=== PATIENT | female | born 1975 | race Caucasian/White ===

== ENCOUNTER 2016-09-18 12:56 | Emergency (ER) | payer OTHER ==
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
[2016-09-18 14:47] VITALS: BP 130/70
== END 2016-09-18 14:46 | disposition home or self-care (01) ==
LOC: ED 12:56
DX: T22.112A Burn of first degree of left forearm, initial encounter (principal); T20.16XA Burn of first degree of forehead and cheek, initial encounter; X08.8XXA Exposure to other specified smoke, fire and flames, initial encounter; Y93.9 Activity, unspecified; Y99.9 Unspecified external cause status
CPT/HCPCS: 99283

== ENCOUNTER 2017-02-22 18:34 | Emergency (ER) | payer OTHER ==
--- NOTE | 2017-02-22 19:09 | ED Physician Documentation ---
Fall - HISTORIAN Historian: patient - HPI Stated Complaint: rib pain Chief Complaint: Fall Additional Information: pt fell from horse 2 d ago w/sig back pain then today had severe coughing spell w/exab thoracic back pain and prod cough plus chills today. pt has opmh of kicked abd by horse age 23 after which surgically lost GB [id number]%PANCREAS PART COLON FALLOPIAN TUBES RCONSTRUCTION UB AND STOMACH. Onset: days ago (2) Where: home Context: lost balance (FALL FROM HORSE) r: moderate Associated Symptoms:: no loss of consciousness Location of Pain/Injury: upper back - ROS CONST: weakness, chills MS/SKIN/LYMPH: back pain. 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 pt also had jaw wireing res horse incident) - SOCIAL HX Smoking History: non-smoker Alcohol Use: none Drug Use: none - FAMILY HX Family History: no significant history - VITAL SIGNS Vital Signs: Vital Signs Temp Pulse Resp BP Pulse Ox 37.0 F L 74 20 133/88 99 02/22/17 18:34 02/22/17 18:34 02/22/17 18:34 02/22/17 18:34 02/22/17 18:34 - REVIEWED ASSESSMENTS Nursing Assessment Reviewed: Yes Vitals Reviewed: Yes <Denzel Andrew - Last Filed: 02/22/17 19:15> - PAST HX Past History: other (lo thryoid. pt also had jaw wireing res horse incident; T -spine nerve stimulator. Multiple abdominal surgeries) - VITAL SIGNS Vital Signs: Vital Signs Temp Pulse Resp BP Pulse Ox 37.0 F L 74 20 133/88 99 02/22/17 18:34 02/22/17 18:34 02/22/17 18:34 02/22/17 18:34 02/22/17 18:34 <ROCIO JOHNSON - Last Filed: 02/23/17 01:09> - PAST HX Allergies/Adverse Reactions: Allergies Allergy/AdvReac Type Severity Reaction Status Date / Time No Known Allergies Allergy Verified 04/02/16 17:27 Home Medications: Ambulatory Orders Medication Instructions Recorded Thyroid,Pork [Nature-Throid] 65 mg PO DAILY 08/21/15 Glipizide/Metformin HCl [Metaglip] 1 each PO DAILY 09/18/16 Omeprazole [Prilosec] 10 mg PO DAILY 09/18/16 Ketorolac Tromethamine [Toradol] 10 mg PO TID #15 tablet 02/22/17 Progress - Results/Orders Results/Orders: charles newman 1914 <Denzel Andrew - Last Filed: 02/22/17 19:15> - Progress Progress: 1914 Assumed care of patient. Lab and xray pending. 2029 Reviewed lab and xray results with patient. Patient nurse at [facility]. 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 Edema noted in Right flank and right posterior back area ; right of T6- T7; tender to light palpation. [address] Landeros, addendum to report noted. [address] Hidalgo at [place]. WBC likely due to trauma. Recommended follow up with PCP. Will treat myalgia. Reviewed signs and symptoms to return to ER for. Reviewed discharge instructions with patient, verbalized understanding. <ROCIO JOHNSON C - Last Filed: 02/23/17 01:09> ED Results Lab/Radiology - Orders Orders: ED Orders Category Date Time Status CHEST P.A.&LAT 2 VIEWS [RAD] Stat Exams 02/22/17 Ordered T SPINE 3 VIEWS [RAD] Stat Exams 02/22/17 Ordered AMYLASE Routine Lab 02/22/17 Ordered CBC/PLATELET/DIFF Routine Lab 02/22/17 Ordered CMP Routine Lab 02/22/17 Ordered PT-INR Routine Lab 02/22/17 Ordered URINALYSIS Routine Lab 02/22/17 Ordered EKG WITH COMPARISON Stat Ther 02/22/17 Ordered <Denzel Andrew Last Filed: 02/22/17 19:15> - Lab Results Lab Results: Lab Results 02/22/17 02/22/17 02/22/17 19:30 19:30 19:30 WBC 16.40 K/ul H K/ul (4.00-12.00) RBC 4.61 M/ul M/ul (3.90-5.20) Hgb 13.7 g/dL g/dL (12.0-16.0) Hct 41.1 % % (34.5-46.5) MCV 89.0 fl fl (80.0-100.0) MCH 29.8 pg pg (28.0-34.0) MCHC 33.5 g/dL g/dL (30.0-36.0) RDW 13.7 % % (11.3-14.3) Plt Count 498 K/mm3 H K/mm3 (130-400) Neut % (Auto) 57.8 % % (39.0-79.0) Lymph % (Auto) 32.0 % % (16.0-50.0) [place] % (Auto) 6.4 % % (0.0-11.0) Eos % (Auto) 1.3 % % (0.0-6.8) Baso % (Auto) 0.8 (0.0-1.5) Neut # (Auto) 9.5 # k/uL H # k/uL (1.4-7.7) Lymph # (Auto) 5.2 # k/uL H # k/uL (0.6-4.0) [place] # (Auto) 1.0 # k/uL H # k/uL (0.0-0.9) Eos # (Auto) 0.2 # k/uL # k/uL (0.0-0.6) Baso # (Auto) 0.1 # k/uL # k/uL (0.0-0.5) Reactive Lymphs % 1.8 % % (0.0-5.0) Reactive Lymphs # 0.3 # k/uL # k/uL (0.0-0.8) PT 10.0 Seconds Seconds (9.4-11.6) INR 0.95 (0.9-1.2) Sodium 136 mmol/L L mmol/L (137-145) Potassium 3.1 mmol/L L mmol/L (3.5-5.1) Chloride 101 mmol/L mmol/L (98-107) Carbon Dioxide 28 mmol/L mmol/L (22-30) BUN 11 mg/dL mg/dL (7-17) Creatinine 0.70 mg/dL mg/dL (0.52-1.04) Estimated Creat Clear 144 Est GFR ( Amer) > 60 (60 - ) Est GFR (Non-Af Amer) > 60 (60 - ) Glucose 89 mg/dL mg/dL (74-106) Calcium 8.4 mg/dL mg/dL (8.4-10.2) Total Bilirubin 0.1 mg/dL L mg/dL (0.2-1.3) AST 13 U/L L U/L (15-46) ALT 17 U/L U/L (13-69) Alkaline Phosphatase 72 U/L U/L (38-126) Total Protein 6.9 g/dL g/dL (6.3-8.2) Albumin 3.5 g/dL g/dL (3.5-5.0) - Radiology Radiology Impressions: CT chest with IV contrast CT abdomen and pelvis with IV contrast Clinical history: History of trauma, right flank pain, cough, fell of the horse No visible lung contusion. No visible pneumothorax or mediastinal hematoma . No visible pleural effusion. No visible focal hepatic or splenic pathology. Normal kidneys, normal pancreas and adrenal glands. No retroperitoneal hematoma. No bowel obstruction. No pelvic hematoma or pelvic fractures. Septated left adnexal cyst is noted measures about the 4.5 cm in diameter. No visible to ossicular lumbar spine fractures. Normal sternum. Impression: Normal CT chest with IV contrast 4.5 cm septated cyst in the left adnexa Normal solid organs of abdomen and pelvis . No bowel obstruction, no free fluid or free air in the abdomen or pelvis No definite visible spine or pelvic fractures Electronically signed on Feb 22, 2017 9:54:07 PM CDT by: Bogdan Landeros Addendum : Post splenectomy and partial pancreatectomy is noted Addendum electronically signed by Bogdan Landeros on February 22, 2017 10:24:40 PM CDT Chest PA and lateral views Clinical history: Cough and history fall and injury of the back Normal heart shadow and mediastinum. Clear lungs without acute infiltrates or pleural effusion. Normal bony thorax. Impression: No active pulmonary pathology Electronically signed on Feb 22, 2017 8:15:24 PM CDT by: Bogdan Landeros Thoracic spine total of 3 views Clinical history: History of fall from a horse 2 days ago, complaining back pain There is intraspinal electrical stimulant in the mid thoracic spine. No fractures, dislocation or bone destruction. Very slight dextroscoliosis of the mid and lower thoracic spine. Impression: Negative for fracture Electronically signed on Feb 22, 2017 8:14:20 PM CDT by: Bogdan Landeros - Orders Orders: ED Orders Category Date Time Status Place IV Lock 1T Care 02/22/17 19:05 Active CHEST P.A.&LAT 2 VIEWS [RAD] Stat Exams 02/22/[address] ABD & PELVIS W/ CON Stat Exams 02/22/[address] CHEST W/ CONTRAST Stat Exams 02/22/17 Ordered T SPINE 3 VIEWS [RAD] Stat Exams 02/22/17 Completed CBC/PLATELET/DIFF Routine Lab 02/22/17 19:30 Completed CMP Routine Lab 02/22/17 19:30 Completed PT-INR Routine Lab 02/22/17 19:30 Completed URINALYSIS Routine Lab 02/22/17 Ordered EKG WITH COMPARISON Stat Ther 02/22/17 Ordered <ROCIO JOHNSON - Last Filed: 02/23/17 01:09> Fall Physical Exam - Physical Exam General Appearance: moderate distress Head: non-tender Neck: non-tender Eye: EOMI Resp/CVS: breath sounds nml (but sig diminished dt thoracic pain), heart sounds nml Abdomen: soft, non-tender Neuro: oriented x3, sensation nml, motor nml, mood/affect nml Back: CVA tenderness (R), CVA tenderness (L), muscle spasm - Maria Luz Coma Score Eyes Open: Spontaneous Speech: Oriented <Denzel Andrew - Last Filed: 02/22/17 19:15> Discharge <Denzel Andrew - Last Filed: 02/22/17 19:15> Decision to Admit: NO Decision Time: 23:08 <ROCIO JOHNSON - Last Filed: 02/23/17 01:09> Clincal Impression: Myalgia Leukocytosis Qualifiers: Leukocytosis type: unspecified Qualified Code(s): D72.829 - Elevated white blood cell count, unspecified Back pain Qualifiers: Back pain location: thoracic back pain Chronicity: acute Back pain laterality: right Qualified Code(s): M54.6 - Pain in thoracic spine Prescriptions: Ketorolac Tromethamine [Toradol] 10 mg PO TID #15 tablet Referrals: Primary Doctor,No [Primary Care Provider] - 2 Days Additional Instructions: You may use Tylenol every 4hour as needed for pain. Limit your dose to less than 4 G per day. Do not take ibuprofen, aleve, naproxen or any other NSAID while you are on toradol. If you develop fever, nausea/vomiting, or productive cough see your primary care provider. Condition: Stable Disposition: 01 HOME, SELF-CARE
[2017-02-22 19:38] LABS: BASOPHILS % 0.8 (0.0-1.5); EOSINOPHILS % 1.3 % (0.0-6.8); MEAN CORPUSCULAR HEMOGLOBIN 29.8 pg (28.0-34.0); MONOCYTES % 6.4 % (0.0-11.0); NEUTROPHILS # 9.5 # k/uL (1.4-7.7)
[2017-02-22 20:02] LABS: eGFR (African) > 60; eGFR (Non-African) > 60
--- NOTE | 2017-02-22 20:23 | Diagnostic Imaging Report ---
ROCIO JOHNSON (CHELSIE) - ER [facility] [address] [facility].[address] [address] Report Submission Date: Feb 22, 2017 8:14:20 PM CDT Patient Study Name: ABI MEDINA Date: Feb 22, 2017 7:41:31 PM CDT Modality Type: CR Gender: F Description: SPINE : 71 Institution: [facility] Physician: ROCIO JOHNSON) - ER Thoracic spine total of 3 views Clinical history: History of fall from a horse 2 days ago, complaining back pain There is intraspinal electrical stimulant in the mid thoracic spine. No fractures, dislocation or bone destruction. Very slight dextroscoliosis of the mid and lower thoracic spine. Impression: Negative for fracture Electronically signed on Feb 22, 2017 8:14:20 PM CDT by: Bogdan VARGAS
--- NOTE | 2017-02-22 20:24 | Diagnostic Imaging Report ---
ROCIO JOHNSON (CHELSIE) - ER [facility] [address] [facility].[address] [address] Report Submission Date: Feb 22, 2017 8:15:24 PM CDT Patient Study Name: ABI MEDINA Date: Feb 22, 2017 7:48:54 PM CDT Modality Type: CR Gender: F Description: CHEST : 71 Institution: [facility] Physician: ROCIO JOHNSON (CHELSIE) - ER Chest PA and lateral views Clinical history: Cough and history fall and injury of the back Normal heart shadow and mediastinum. Clear lungs without acute infiltrates or pleural effusion. Normal bony thorax. Impression: No active pulmonary pathology Electronically signed on Feb 22, 2017 8:15:24 PM CDT by: Bogdan VARGAS
[2017-02-22] MEDS: fentaNYL CITRATE/PF 100 MCG/ 2ML AMP IVP ONE (20:51)
--- NOTE | 2017-02-22 22:58 | Diagnostic Imaging Report ---
ROCIO JOHNSON (CHELSIE) - ER [facility] [address] [facility].[address] [address] Report Submission Date: Feb 22, 2017 9:54:07 PM CDT Patient Study Name: ABI MEDINA Date: Feb 22, 2017 8:59:32 PM CDT Modality Type: CT\SR Gender: F Description: CT CHEST W/ CONTRAST : 71 Institution: [facility] Physician: ROCIO JOHNSON) - ER CT chest with IV contrast CT abdomen and pelvis with IV contrast Clinical history: History of trauma, right flank pain, cough, fell of the horse No visible lung contusion. No visible pneumothorax or mediastinal hematoma . No visible pleural effusion. No visible focal hepatic or splenic pathology. Normal kidneys, normal pancreas and adrenal glands. No retroperitoneal hematoma. No bowel obstruction. No pelvic hematoma or pelvic fractures. Septated left adnexal cyst is noted measures about the 4.5 cm in diameter. No visible to ossicular lumbar spine fractures. Normal sternum. Impression: Normal CT chest with IV contrast 4.5 cm septated cyst in the left adnexa Normal solid organs of abdomen and pelvis . No bowel obstruction, no free fluid or free air in the abdomen or pelvis No definite visible spine or pelvic fractures Electronically signed on Feb 22, 2017 9:54:07 PM CDT by: Bogdan VARGAS
--- NOTE | 2017-02-22 22:58 | Diagnostic Imaging Report ---
ROCIO JOHNSON (CHELSIE) - ER [facility] [address] [facility].[address] [address] Report Submission Date: Feb 22, 2017 9:54:07 PM CDT Patient Study Name: ABI MEDINA Date: Feb 22, 2017 8:59:32 PM CDT Modality Type: CT\SR Gender: F Description: CT CHEST W/ CONTRAST : 71 Institution: [facility] Physician: ROCIO JOHNSON) - ER CT chest with IV contrast CT abdomen and pelvis with IV contrast Clinical history: History of trauma, right flank pain, cough, fell of the horse No visible lung contusion. No visible pneumothorax or mediastinal hematoma . No visible pleural effusion. No visible focal hepatic or splenic pathology. Normal kidneys, normal pancreas and adrenal glands. No retroperitoneal hematoma. No bowel obstruction. No pelvic hematoma or pelvic fractures. Septated left adnexal cyst is noted measures about the 4.5 cm in diameter. No visible to ossicular lumbar spine fractures. Normal sternum. Impression: Normal CT chest with IV contrast 4.5 cm septated cyst in the left adnexa Normal solid organs of abdomen and pelvis . No bowel obstruction, no free fluid or free air in the abdomen or pelvis No definite visible spine or pelvic fractures Electronically signed on Feb 22, 2017 9:54:07 PM CDT by: Bogdan VARGAS
[2017-02-22] MEDS: KETOROLAC TROMETHAMINE 30 MG/1ML VIAL IVP ONE (23:15)
[2017-02-22] MEDS: BUTORPHANOL TARTRATE 2 MG/ML VIAL IV ONE (23:15)
[2017-02-22 23:37] VITALS: BP 132/67
[2017-02-23 06:50] LABS: APPEARANCE,URINE CLEAR (CLEAR); COLOR,URINE YELLOW (YELLOW); OCCULT BLOOD,URINE TRACE-LYSED (NEGATIVE); UROBILINOGEN URINE 0.2 Eu (0.2-1.0)
== END 2017-02-22 23:30 | disposition home or self-care (01) ==
LOC: ED 18:34
DX: M79.1 Myalgia (principal); D72.829 Elevated white blood cell count, unspecified; M54.6 Pain in thoracic spine
CPT/HCPCS: 71020; 71260; 72072; 74177; 80053; 81002; 83605; 85025; 85610; J0595; J1885; J3010; 96374; 96375; 99283; S1016

== ENCOUNTER 2018-01-03 19:52 | Emergency (ER) | payer OTHER ==
--- NOTE | 2018-01-03 19:59 | ED Physician Documentation ---
Headache - HISTORIAN Historian: patient - HPI Stated Complaint: headache Chief Complaint: Headache Onset: other (on and off increasingly over last three weeks ) Timing: unsure New Gradual Onset: No Exposure To: tick bite(s) Severity: moderate Quality: pain (which is increased vs other migraines. ) Associated Symptoms: weakness. denies: sensitivity to light, vomiting, neck pain, trouble walking, tingling, numbness, dizziness, light-headedness Preceding Symptoms: typical of prior aura(s). denies: visual disturbance Exacerbated By: movement. denies: light, noise Further Comments: yes (She states she has had several ticks on her in the last 4 weeks and the increasing migraine symptoms started around 3 weeks ago. She reports she has had migraines in the past and the abortive therapy is not working at this time> She states usually weather change like today would stimulate a migraine but several in the past 3 weeks have not been associated with weather change.) - ROS NEURO/PSYCH: denies: confusion, anxiety, depression EYES/ENT: sinus pain. denies: difficulty swallowing CVS/RESP: denies: chest pain, shortness of breath, cough - PAST HX Medical History: other (pancreatic issues do to partial removal , spleen removal and colon portions. She also has history of thyroid cancer. ) Surgical History: appendectomy Immunizations: UTD Allergies/Adverse Reactions: Allergies Allergy/AdvReac Type Severity Reaction Status Date / Time No Known Allergies Allergy Verified 01/03/18 20:17 Home Medications: Ambulatory Orders Medication Instructions Recorded Metformin HCl [Glucophage] 1 tab PO DAILY 01/03/18 Omeprazole 2 cap PO DAILY 01/03/18 Thyroid,Pork [[place] Thyroid] 1 tab PO DAILY 01/03/18 - SOCIAL HX Smoking History: non-smoker Alcohol Use: none Drug Use: none - Family HX Family History: none - VITAL SIGNS Vital Signs: Vital Signs Temp Pulse Resp BP Pulse Ox 96.6 F L 79 15 116/67 98 01/03/18 22:51 01/03/18 22:51 01/03/18 22:51 01/03/18 22:51 01/03/18 22:51 - REVIEWED ASSESSMENTS Nursing Assessment Reviewed: Yes Vitals Reviewed: Yes Progress - Progress Progress: 2144: discussed current plan and pt is agreeable DG ED Results Lab/Radiology - Lab Results Lab Results: Lab Results 01/03/18 01/03/18 01/03/18 21:15 21:15 21:14 WBC 15.40 K/ul H K/ul (4.00-12.00) RBC 4.60 M/ul M/ul (3.90-5.20) Hgb 13.2 g/dL g/dL (12.0-16.0) Hct 41.4 % % (34.5-46.5) MCV 89.9 fl fl (80.0-100.0) MCH 28.6 pg pg (28.0-34.0) MCHC 31.8 g/dL g/dL (30.0-36.0) RDW 14.0 % % (11.3-14.3) Plt Count 554 K/mm3 H K/mm3 (130-400) Neut % (Auto) 54.7 % % (39.0-79.0) Lymph % (Auto) 35.1 % % (16.0-50.0) [place] % (Auto) 5.0 % % (0.0-11.0) Eos % (Auto) 2.3 % % (0.0-6.8) Baso % (Auto) 0.5 (0.0-1.5) Neut # (Auto) 8.4 # k/uL H # k/uL (1.4-7.7) Lymph # (Auto) 5.4 # k/uL H # k/uL (0.6-4.0) [place] # (Auto) 0.8 # k/uL # k/uL (0.0-0.9) Eos # (Auto) 0.4 # k/uL # k/uL (0.0-0.6) Baso # (Auto) 0.1 # k/uL # k/uL (0.0-0.5) Reactive Lymphs % 2.3 % % (0.0-5.0) Reactive Lymphs # 0.4 # k/uL # k/uL (0.0-0.8) Sodium 137 mmol/L mmol/L (136-145) Potassium 3.6 mmol/L mmol/L (3.5-5.1) Chloride 104 mmol/L mmol/L (98-107) Carbon Dioxide 29 mmol/L mmol/L (22-30) BUN 10 mg/dL mg/dL (7-17) Creatinine 0.90 mg/dL mg/dL (0.52-1.04) Estimated Creat Clear 114 Est GFR ( Amer) > 60 (60 - ) Est GFR (Non-Af Amer) > 60 (60 - ) Glucose 99 mg/dL mg/dL (74-106) Calcium 7.7 mg/dL L mg/dL (8.4-10.2) Total Bilirubin < 0.1 mg/dL L mg/dL (0.2-1.3) AST 12 U/L L U/L (15-46) ALT 23 U/L U/L (13-69) Alkaline Phosphatase 74 U/L U/L (38-126) Total Protein 6.5 g/dL g/dL (6.3-8.2) Albumin 3.5 g/dL g/dL (3.5-5.0) Urine Color Urine Appearance Urine pH Ur Specific [place] Urine Protein Urine Ketones Urine Occult Blood Urine Nitrite Urine Bilirubin Urine Urobilinogen Ur Leukocyte Esterase Urine Glucose Urine HCG, Qual Cancelled 01/03/18 21:00 WBC RBC Hgb Hct MCV MCH MCHC RDW Plt Count Neut % (Auto) Lymph % (Auto) [place] % (Auto) Eos % (Auto) Baso % (Auto) Neut # (Auto) Lymph # (Auto) [place] # (Auto) Eos # (Auto) Baso # (Auto) Reactive Lymphs % Reactive Lymphs # Sodium Potassium Chloride Carbon Dioxide BUN Creatinine Estimated Creat Clear Est GFR ( Amer) Est GFR (Non-Af Amer) Glucose Calcium Total Bilirubin AST ALT Alkaline Phosphatase Total Protein Albumin Urine Color TNP Urine Appearance TNP Urine pH 6.0 (5.0 - 8.0) Ur Specific [place] >=1.030 H (1.010-1.030) Urine Protein Negative mg/dL mg/dL (NEGATIVE) Urine Ketones Negative mg/dL mg/dL (NEGATIVE) Urine Occult Blood Trace-intact H (NEGATIVE) Urine Nitrite Negative (NEGATIVE) Urine Bilirubin Negative (NEGATIVE) Urine Urobilinogen 0.2 Eu Eu (0.2-1.0) Ur Leukocyte Esterase Negative (NEGATIVE) Urine Glucose Negative mg/dL mg/dL (NEGATIVE) Urine HCG, Qual Negative (NEGATIVE) - Radiology Radiology Impressions: HEAD CT WITHOUT CONTRAST HISTORY: Severe migraines for 1 month COMPARISON: TECHNIQUE: Axial images were obtained from the skullbase to the vertex without IV contrast. FINDING: The ventricular system is normal in size and configuration. There is normal parenchymal attenuation. There is no positive mass effect or intra/extra- axial hemorrhage. Visualized paranasal sinuses and mastoid air cells are clear. The calvarium is intact. IMPRESSION: NO INTRACRANIAL ABNORMALITY. Electronically signed on Jan 03, 2018 9:39:36 PM CDT by: Briana Garcia - Orders Orders: ED Orders Category Date Time Status IV Started NOW Care 01/03/18 20:[address] BRAIN W/O CONTRAST Stat Exams 01/03/18 Completed CBC/PLATELET/DIFF Routine Lab 01/03/18 21:15 Completed CMP Routine Lab 01/03/18 21:15 Completed UA MACRO DIP ONLY Stat Lab 01/03/18 21:00 Completed URINE HCG Stat Lab 01/03/18 21:00 Completed 0.9 % Sodium Chloride [Normal Saline] 1,000 ml Med 01/03/18 21:06 Discontinued IV .STK-MED 0.9 % Sodium Chloride [Normal Saline] 1,000 ml Med 01/03/18 21:00 Discontinued IV Q10H Dexamethasone Sod Phosphate [Decadron] Med 01/03/18 21:44 Discontinued 4 mg IVP NOW ONE Ketorolac Tromethamine [Toradol] Med 01/03/18 21:43 Discontinued 30 mg IVP NOW ONE Ondansetron HCl/Pf [Zofran 4 mg/2 ml] Med 01/03/18 21:43 Discontinued 4 mg IVP NOW ONE fentaNYL CITRATE/PF [Duragesic] Med 01/03/18 22:25 Discontinued 100 mcg .ROUTE .STK-MED ONE fentaNYL CITRATE/PF [Duragesic] Med 01/03/18 22:24 Discontinued 50 mcg IVP NOW ONE Headache Physical Exam - EXAM General Appearance: no acute distress, alert EENT: no facial swelling, eyes nml inspection, PERRL, nml ENT Neck: normal inspection Respiratory: no resp distress, chest non-tender, breath sounds normal CVS: reg. rate & rhythm, heart sounds nml Abdomen: non-tender, no organomegaly, nml bowel sounds, no distention Skin: color nml, no rash Extremitites: non-tender, normal range of motion, no evidence of injury, no edema - NEURO/PSYCH Higher Functions: alert, oriented x3, nml speech, mood/affect nml Cranial: nml as tested Cerebellar: nml as tested, nml gait Sensorimotor: motor nml Discharge Clincal Impression: Migraine Qualifiers: Migraine type: with aura Status migrainosus presence: without status migrainosus Intractability: not intractable Qualified Code(s): G43.109 - Migraine with aura, not intractable, without status migrainosus Referrals: Jessica Ambrosio MD [Primary Care Provider] - 2 Days Additional Instructions: 1. Augmentin 875 /125 mg take 1 by mouth BID x 10 days 2. Medrol Dose pack - as directed start tomorrow after dinner 3. Increase fluids 4. Rest 5. See PCP in 2-4 days 6. Return to ER if any concerns Condition: Stable Disposition: 01 HOME, SELF-CARE Decision to Admit: NO Date of Decison to Admit: 01/03/18 Decision Time: 22:51
[2018-01-03 20:16] VITALS: BP 116/67
[2018-01-03] MEDS ORDERED: 0.9 % SODIUM CHLORIDE 1,000 ML IV ONE (21:06)
[2018-01-03] MEDS: 0.9 % SODIUM CHLORIDE 1,000 ML IV SCH (21:10)
[2018-01-03 21:17] LABS: BASOPHILS % 0.5 (0.0-1.5); EOSINOPHILS % 2.3 % (0.0-6.8); MEAN CORPUSCULAR HEMOGLOBIN 28.6 pg (28.0-34.0); MEAN CORPUSCULAR VOLUME 89.9 fl (80.0-100.0); NEUTROPHILS # 8.4 # k/uL (1.4-7.7)
[2018-01-03 21:32] LABS: eGFR (Non-African) > 60
--- NOTE | 2018-01-03 21:45 | Diagnostic Imaging Report ---
[facility] [address] [facility] [address] [place], [place]. [address] Report Submission Date: Jan 03, 2018 9:39:36 PM CDT Patient Study Name: ABI MEDINA Date: Jan 03, 2018 8:59:51 PM CDT Modality Type: CT Gender: F Description: CT BRAIN W/O CONTRAST : 71 Institution: [facility] Physician: [facility] HEAD CT WITHOUT CONTRAST HISTORY: Severe migraines for 1 month COMPARISON: TECHNIQUE: Axial images were obtained from the skullbase to the vertex without IV contrast. FINDING: The ventricular system is normal in size and configuration. There is normal parenchymal attenuation. There is no positive mass effect or intra/extra-axial hemorrhage. Visualized paranasal sinuses and mastoid air cells are clear. The calvarium is intact. IMPRESSION: NO INTRACRANIAL ABNORMALITY. Electronically signed on Jan 03, 2018 9:39:36 PM CDT by: Briana VARGAS
[2018-01-03] MEDS: KETOROLAC TROMETHAMINE 30 MG/1ML VIAL IVP ONE (21:54)
[2018-01-03] MEDS: DEXAMETHASONE SOD PHOS 4 MG/ML VIAL IVP ONE (21:55)
[2018-01-03] MEDS: ONDANSETRON HCL/PF 4 MG/ 2ML VIAL IVP ONE (21:55)
[2018-01-03] MEDS: fentaNYL CITRATE/PF 100 MCG/ 2ML AMP ONE (22:28)
[2018-01-03] MEDS: fentaNYL CITRATE/PF 100 MCG/ 2ML AMP IVP ONE (22:28)
[2018-01-04 06:36] LABS: OCCULT BLOOD,URINE TRACE-INTACT (NEGATIVE); UROBILINOGEN URINE 0.2 Eu (0.2-1.0)
[2018-01-04 06:38] LABS: URINE HCG NEGATIVE (NEGATIVE)
== END 2018-01-03 22:51 | disposition home or self-care (01) ==
LOC: ED 19:52
DX: G43.109 Migraine with aura, not intractable, without status migrainosus (principal)
CPT/HCPCS: 70450; 80053; 81002; 81025; 85025; J1100; J1885; J2405; J3010; J7030; 96365; 96375; 99284; S1016

== ENCOUNTER 2018-01-22 12:35 | Outpatient (CLI) | payer OTHER ==
--- NOTE | 2018-01-22 17:34 | Diagnostic Imaging Report ---
JN [facility] [place] [facility] [address] [id number] Report Submission Date: Jan 22, 2018 1:01:30 PM CDT Patient Study Name: ABI MEDINA Date: Jan 22, 2018 12:42:33 PM CDT Modality Type: DX Gender: F Description: CHEST : 71 Institution: [facility] [place] [facility] Physician: JN VERMA Examination: PA and lateral chest. History: Evaluate lung alan. COUGH X 1 MONTH (Hx) Comparison exam: 22 February 2017 Findings: PA and lateral views of the chest demonstrates a normal cardiac and mediastinal silhouette. No focal infiltrate. No blunting of the costophrenic margins. Stable left lower lung granuloma. Osseous structures are appropriate for age. Spinal stimulator. Right axillary soft tissue calcification. Impression: No acute pulmonary process. Electronically signed on Jan 22, 2018 1:01:30 PM CDT by: João VARGAS
== END 2018-01-22 12:36 ==
LOC: RAD 12:35
PROVIDERS: ATTEND Family Medicine
DX: R05 Cough (principal)
CPT/HCPCS: 71046